=== PATIENT | female | born 1950 | race Caucasian/White ===

== ENCOUNTER 2023-09-22 01:12 | Day surgery (SDC) | payer MEDICARE, SELFPAY ==
[2023-08-27 10:48] VITALS: BMI 29.1
--- NOTE | 2023-09-18 13:53 | SUR.PREOP ---
Patient called regarding upcoming procedure. Reviewed preop instructions, appointment times, and procedure prep.
--- NOTE | 2023-09-22 11:39 | P.PNAN_ITS ---
Anes - Initial Pre Proc Eval Procedure: Operation Date: 09/22/23 12:30 Proposed Procedures p Colonoscopy - Rolf Singh MD Date/Time: 09/22/23 11:39 Surgeon: Rolf Singh MD Pre Op Diagnosis: Abdominal pain, Benign neoplasm of the colon Patient Data Age: 73 Gender: F Height: 1.63 m Weight: 77 kg Allergies Allergy/AdvReac Type Severity Reaction Status Date / Time ivory soap Allergy Mild Rash Uncoded 09/22/23 11:40 Home Medications Medication Instructions Recorded Confirmed Type alendronate 70 mg/75 mL oral 70 mg PO WEEKLY 08/25/23 08/27/23 History solution aspirin 325 mg tablet 325 mg PO DAILY 08/25/23 08/27/23 History calcium citrate 315 mg 1 tablet PO DAILY 08/25/23 08/27/23 History calcium-vitamin D3 6.25 mcg (250 unit) tablet (Citracal + Vitamin D Maximum) cholecalciferol (vitamin D3) 25 25 mcg PO DAILY 08/25/23 08/27/23 History mcg (1,000 unit) capsule clobetasol 0.05 % topical cream 1 applic topical DAILY 08/25/23 08/27/23 History lactulose 10 gram/15 mL (15 mL) 10 g (15 mL) PO DAILY constipation 08/25/23 08/27/23 Rx oral solution 1 month #450 mL lansoprazole 15 mg capsule,delayed 15 mg PO DAILY 08/25/23 08/27/23 History release lorazepam 1 mg tablet 1 mg PO DAILY PRN Anxiety 08/25/23 08/27/23 History losartan 50 mg tablet 50 mg PO DAILY 08/25/23 08/27/23 History potassium gluconate 595 mg (99 mg) 595 mg PO DAILY 08/25/23 08/27/23 History tablet rosuvastatin 40 mg tablet 40 mg PO DAILY 08/25/23 08/27/23 History zinc acetate 1 applic topical TID PRN Rash 08/25/23 08/27/23 History Patient hx anesthesia problems: none Family hx anesthesia problems: none Results Review: All pre-operative results and documents have been reviewed as part of the pre- operative evaluation. FORMERLY [facility], [facility] Past Medical History Medical History (Updated 08/25/23 @ 11:40 by Sarah A. Bosaw, TELEPHONE APPOINTMENT CLERK-C) Abdominal pain Adenomatous colon polyp Constipation GERD (gastroesophageal reflux disease) HLD (hyperlipidemia) HTN (hypertension) Social History Social History Smoking packs per day: 2 Smoking cigarettes per day: 40.0 Years smoked: 45 Smoking pack-years: 90.00 Smoking status: Former smoker Alcohol intake: current Drinks per week: 4 Substance use: current Substance use type: marijuana Other substance usage details: smoke daily marijuana Living arrangements: with family Spiritual care concerns: No Anes - Eval Final PreProcedure Day of Procedure 09/22/23 11:39 Patient weight: normal Heart: regular rate and rhythm Lungs: clear to auscultation Airway: Mallampati scale class II Neurological: alert and oriented Last oral intake: >/= 8 hours ASA classification: III Emergent: no Anesthetic plan: proceed Anesthesia type and monitoring: general GIVS and standard monitoring Results Review: All pre-operative results and documents have been reviewed as part of the pre- operative evaluation. Informed Consent: The patient's anesthetic plan and its attendant risks and benefits were discussed with the patient/family/POA. Questions were solicited and answers provided to the satisfaction of the patient/family/POA.
[2023-09-22 11:43] VITALS: BP 162/76; PULSE 74; RESP 19; TEMP 36.3; O2SAT 97
[2023-09-22] MEDS: LACTATED RINGERS 1,000 ML 150 ML IV CONT (11:57)
--- NOTE | 2023-09-22 12:21 | WPDHPUPDATE1 ---
History and Physical Update Update Date/Time: 09/22/23 12:21 History and Physical has been reviewed, including an updated exam of the patient. There are NO changes in the patient's condition. Risks, benefits, and alternatives have been discussed and questions answered. Patient agrees to proceed with procedure.
[2023-09-22 12:48] VITALS: BP 137/75; PULSE 95; RESP 23; O2SAT 99
[2023-09-22 12:58] VITALS: BP 141/77; PULSE 90; RESP 23; O2SAT 100
[2023-09-22 13:08] VITALS: BP 157/99; PULSE 88; RESP 22; O2SAT 99
== END 2023-09-22 13:13 | disposition home or self-care (01) ==
PROVIDERS: PCP Internal Medicine; Visit Provider Internal Medicine Gastroenterology
PROC: 0DJD8ZZ Inspection of Lower Intestinal Tract, Via Natural or Artificial Opening Endoscopic (ICD-10-PCS; CPT 45378; principal; 2023-09-22 12:30)
DX: K57.30 Diverticulosis of large intestine without perforation or abscess without bleeding (principal); D12.3 Benign neoplasm of transverse colon; D12.4 Benign neoplasm of descending colon; K64.8 Other hemorrhoids; I10 Essential (primary) hypertension; E78.5 Hyperlipidemia, unspecified; K21.9 Gastro-esophageal reflux disease without esophagitis; Z79.82 Long term (current) use of aspirin; Z87.891 Personal history of nicotine dependence; F12.90 Cannabis use, unspecified, uncomplicated
CPT/HCPCS: 45385; 88305; J2704; J7120